=== PATIENT | female | born 1965 | race Caucasian/White ===

== ENCOUNTER 2017-01-16 09:58 | Emergency (ER) | payer MEDICARE ==
[2017-01-16] MEDS ORDERED: MORPHINE SULFATE 2 MG/ML DISP.SYRIN IV ONE ×3 (10:27→13:32)
[2017-01-16] MEDS ORDERED: MORPHINE SULFATE 2 MG/ML DISP.SYRIN ONE ×3 (10:32→13:31)
[2017-01-16 10:45] LABS: Hematocrit 39.5 % (37.0-47.0); Hemoglobin 12.5 gm/dL (12.5-16.0); Mean Cell Volume 96.1 fl (78-100); Mean Corpuscular Hemoglobin 30.4 pg (27-31); Mean Corpuscular Hgb Conc 31.6 g/dl (32-36); Neutrophil # 8.1 K/mm3 (1.3-6.0); Neutrophil % 81.6 % (42-75.0); Platelet Count 137 K/mm3 (150-450); Red Blood Count 4.11 M/mm3 (4.2-5.4); Red Cell Distribution Width 15.6 % (11.5-14.0)
[2017-01-16 10:57] LABS: Prothrombin Time (Patient) 11.2 Seconds (9.4-11.4)
[2017-01-16 10:58] LABS: INR 1.08 INR (0.90-1.10); Partial Thrombolplastin Time 28.7 Seconds (24-32)
[2017-01-16 11:03] LABS: Troponin I Less than 0.017 ng/ml (0.00-0.10)
[2017-01-16 11:07] LABS: ALT 18 U/L (19-67); AST 16 U/L (0-48); Albumin * 3.6 gm/dl (3.4-5.0); Alkaline Phosphatase * 153 U/L (50-170); Anion Gap 22.1 mmol/L (6.8-13.8); BNP * 393 pg/mL (5-150); BUN/Creatinine Ratio 5.6 (9.0-21.6); Bilirubin, Total 0.6 mg/dL (0.0-1.1); Blood Urea Nitrogen 48 mg/dL (3-23); Carbon Dioxide 21.4 mmol/L (24-32.6); Chloride 97 mmol/L (97-106); Glucose * 99 mg/dL (70-110); Potassium 4.5 mmol/L (3.4-4.6); Sodium 136 mmol/L (132-142); TSH * 10.398 uIU/mL (0.358-3.74); Total Protein 7.9 gm/dL (6.2-8.2)
[2017-01-16] MEDS ORDERED: NITROGLYCERIN 0.4 MG/TAB BTL SL ONE ×2 (11:07→12:45)
[2017-01-16 11:09] LABS: Ca. Corrected For Albumin 5.5 mg/dL (8.4-10.2); Calcium * 5.5 mg/dL (7.9-10.9)
[2017-01-16 11:27] LABS: Magnesium 1.7 mg/dL (1.2-2.8); Phosphorus 5.1 mg/dL (2.2-4.2)
[2017-01-16] MEDS ORDERED: DEXTROSE 5% IV SCH ×2 (12:30)
[2017-01-16] MEDS ORDERED: WATER IV SCH ×2 (12:30)
[2017-01-16] MEDS ORDERED: CALCIUM GLUCONATE IV SCH ×2 (12:30)
--- NOTE | 2017-01-16 14:47 | ERNOTE ---
Chest Pain/Cardiac HPI Date of Service: 01/16/17 Chief Complaint: Chest Pain Time Seen by Provider: 01/16/17 10:11 Source: patient Immunizations: IMMUNIZATION HX Immunizations Up to Date Yes History of Influenza Vaccine Yes Hx Pneumococcal Vaccination Yes Allergies/Adverse Reactions: Allergies erythromycin base [Erythromycin Base] Adverse Reaction (Mild, Verified 01/16/17 10:19) RASH metoclopramide HCl [From Reglan] Adverse Reaction (Mild, Verified 01/16/17 10:19 ) VISION CHANGES Home Medications: HOME MEDICATIONS Calcium Acetate [Phoslo] 2 tab PO PRN PRN 08/16/14 [Last Taken 09/02/14] Calcium Acetate [Phoslo] 4 tab PO TID 08/16/14 [Last Taken 09/03/14] Cinacalcet HCl [Sensipar] 180 mg PO HS 08/16/14 [Last Taken 09/02/14] Percocet 10-325 mg Tablet 03/18/16 [Last Taken Unknown] Renvela 03/18/16 [Last Taken Unknown] Doxycycline Monohydrate 100 mg PO BID #20 tablet 04/12/16 [Last Taken Unknown] predniSONE [Prednisone] 3 tab PO DAILY #9 tab 04/12/16 [Last Taken Unknown] Codeine Phosphate/Guaifenesin [Codeine-Guaifen 10-100 mg/5 ml] 10 ml PO Q4H PRN #120 liquid 04/21/16 [Last Taken Unknown] Narrative: patient c/o substernal chest pain onset this am, hx of renal failure Timing: constant, getting worse Severity/Quality: severe, aching, pressure Location: substernal Chest Pain Radiation: no radiation Activities at Onset: none Modifying Factors - Improves: Present: nothing Modifying Factors - Worsens: Present: nothing Nitro Today/Relief: no nitro taken today Aspirin Treatment Today: no aspirin today Associated Symptoms: Present: shortness of breath, palpitations Prior Chest Pain/Cardiac Workup: Reports: no prior cardiac workup Prior Treatment: Reports: recently seen, treated by physician Review of Systems - Review of Systems Constitutional: Present: See HPI, weakness, fatigue, malaise EYE: Present: no symptoms reported ENT: Present: no symptoms reported Respiratory: Present: no symptoms reported Cardiology: Present: See HPI, chest pain, palpitations Gastrointestinal/Abdominal: Present: no symptoms reported Genitourinary: Present: no symptoms reported Musculoskeletal: Present: no symptoms reported Skin: Present: no symptoms reported Neurological: Present: no symptoms reported Endocrine: Present: no symptoms reported Hematologic/Lymphatic: Present: no symptoms reported - Patient's Past Medical History Patient History - Medical: Renal Disease, Renal Failure, Other - 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 Patient History - Cardiac/Respiratory: No pertinent hx Patient History - Cancer: No Hx of Cancer Patient History - Surgical Procedures: Cholecystectomy, Total Knee Replacement, Other, Hernia Repair Patient History - Other: None, Organ Transplant LMP (females 10-50): unknown - Family History Family History:: no untoward family reactions to anesthesia, no familial bleeding tendencies, no family history of premature - Family History Mother Family History - Medical: Family History - Cardiac/Respiratory: Pneumonia Father Family History - Medical: Family History - Cardiac/Respiratory: Pulmonary Embolism - Social History Living Situations: other Abuse History: No History of abuse Psych History: No pertinent hx Does anyone smoke in the home?: Yes Smoking Status: Current every day smoker Have you smoked in the past 12 months: Yes Alcohol Use: none Drug Use: none - Immunizations Immunizations Up to Date: Yes Hx Pneumococcal Vaccination: Yes History of Influenza Vaccine: Yes Physical Exam - Physical Exam General Appearance: Present: moderate distress, active Head Exam: Present: normal inspection, no evidence of injury Eye Exam: Normal inspection: bilateral, PERRL: bilateral, EOMI: bilateral Ears, Nose, Throat: Present: normal ENT inspection Neck: Present: normal inspection, nontender Respiratory: Present: no respiratory distress, normal breath sounds, no accessory muscle use, chest nontender, lungs clear Cardiovascular/Chest: Present: regular rate, rhythm, no murmur, normal peripheral pulses Peripheral Pulses: N=norm/S=strong/W=weak/B=bound/A=absent: Carotid (R): Normal , Carotid (L): Normal, Radial (R): Normal, Radial (L): Normal, Femoral (R): Normal, Femoral (L): Normal, Dorsalis-pedis (R): Normal, Dorsalis-pedis (L): Normal Gastrointestinal/Abdominal: Present: normal bowel sounds, nontender, nondistended, soft, no organomegaly Back Exam: Present: normal inspection, normal range of motion, no CVA tenderness , no vertebral tenderness Extremity Exam: Present: normal inspection, non-tender, normal range of motion, no edema Neurological Exam: Present: alert, oriented, normal mood/affect, no motor/ sensory deficits DTR: N=norm/NB=norm/brisk/A=abs/DD=dull/dimin/HC=hyperactive: Bicep (R): Normal , Bicep (L): Normal, Tricep (R): Normal, Tricep (L): Normal, Knee (R): Normal, Knee (L): Normal, Ankle (R): Normal, Ankle (L): Normal Skin Exam: Present: normal color, warm/dry Lymphatic Exam: Present: no adenopathy ED Progress - Results and Orders Patient's Lab Results:: I have reviewed the patient's lab results. - Vital Signs Patient's Vital Signs:: I have reviewed the patient's vital signs. Vital Signs: Vital Signs 01/16/17 01/16/17 01/16/17 10:08 10:44 11:03 Temperature 37.3 C Pulse Rate 110 H 102 H 104 H Respiratory 13 15 14 Rate Blood Pressure 155/73 113/62 O2 Sat by Pulse 98 100 100 Oximetry 01/16/17 01/16/17 01/16/17 11:29 11:46 12:11 Temperature Pulse Rate 105 H 101 H 99 Respiratory 14 14 15 Rate Blood Pressure 126/54 107/52 115/59 O2 Sat by Pulse 98 99 100 Oximetry 01/16/17 01/16/17 01/16/17 12:36 12:58 13:38 Temperature Pulse Rate 98 103 H 98 Respiratory 12 10 L 11 L Rate Blood Pressure 122/70 112/77 94/38 O2 Sat by Pulse 100 98 98 Oximetry 01/16/17 14:33 Temperature 37.3 C Pulse Rate 109 H Respiratory 14 Rate Blood Pressure 108/49 O2 Sat by Pulse 98 Oximetry - EKG EKG: NSR EKG read: Interp. by me - X-Ray X-Ray #1 X-Ray: chest - no acute process - Progress/Reassessment Chief Complaint: Chest Pain Progress:: Improved - Transfer of Care Brief History: case discused with dr su ba [facility] patient accepted for transfer Expected Disposition: Transfer Departure - Departure Clinical Impression: Chest pain Disposition: [facility] Condition: Fair Referrals: Elgin Mukherjee DO [Primary Care Provider] -
[2017-01-16 15:01] VITALS: BP 104/53
== END 2017-01-16 15:29 | disposition short-term general hospital (02) ==
LOC: ER 09:58
DX: R07.9 Chest pain, unspecified (principal); F17.200 Nicotine dependence, unspecified, uncomplicated